=== PATIENT | female | born 1995 | race Caucasian/White ===

== ENCOUNTER 2021-09-13 09:53 | Emergency (ER) | payer OTHER ==
[2021-09-13] MEDS ORDERED: AUGMENTIN 875-1 EACH PO (11:27)
== END 2021-09-13 11:37 | disposition home or self-care (01) ==
LOC: ER1 09:53
DX: S61.452A Open bite of left hand, initial encounter (principal); Z23 Encounter for immunization; W54.0XXA Bitten by dog, initial encounter
CPT/HCPCS: 73130; 90471; 90715; 99283